=== PATIENT | male | born 2000 | race Caucasian/White ===

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

== ENCOUNTER → 2021-01-12 | Outpatient (CLI) | payer MEDICAID, OTHER ==
--- NOTE | 2021-01-12 16:54 | PN ---
PROGRESS NOTE This patient is a 20-year-old boy with Down's syndrome and obstructive sleep apnea coming in for a followup. Since his evaluation 3 years ago, the patient has gained weight, around 17 pounds. This is partly because of weight gain and growth. He is doing well. He had moderate to severe GOOD with an AHI of 23 and he was treated with a CPAP pressure of 7 cm of water. I re-checked his machine. The machine is functional. Compliance data has been downloaded, and based on 30-day compliance data, the patient has been averaging around 6.2 hours of CPAP use per night at a pressure of 7 with a leak of 1 L/minute, and his AHI is down to 1.2. He is using an AirFit F20 full-face mask, small size. He is doing great. No naps during the day. Alert and refreshed. Interactive and conversing, especially on the days when he wears his CPAP adequately. The family has no complaints in terms of his CPAP use. No snoring while on the CPAP. His current [place] score cannot be adequately obtained because of his underlying mental retardation and Down's syndrome. REVIEW OF SYSTEMS: Fourteen-point review of system was done. No new onset of medical problems or comorbidities. No change in medication. PHYSICAL EXAMINATION: BP is 108/60, pulse 98, respirations 20, temperature 98.8, saturation 95% on room air. Height is 5 feet 2 inches. Weight is 211, BMI 38.5. GENERAL APPEARANCE: Calm, comfortable. HEAD: Atraumatic, normocephalic. Obvious Down's features with microglossia. NECK: Supple. No JVD. No goiter or neck masses. Mallampati class IV. LUNGS: Clear. Breath sounds equal bilaterally. HEART: Heart sounds are regular rate and rhythm. Normal S1, S2. No S3, S4. No murmurs. ABDOMEN: Soft, nontender. No organomegaly. EXTREMITIES: No edema. No cyanosis or clubbing. NEUROLOGIC: Awake and alert. There is no focal neurological deficit. IMPRESSION: 1. Obstructive sleep apnea, moderate to severe. AHI of 23, currently on CPAP pressure of 7. 2. Obesity. The patient has gained weight over the past 3 years and currently is up to 211 pounds. 3. Hypersomnia, improved. PLAN: No issues with his CPAP treatment. The patient will be kept on a pressure of 7. This has been enough and adequate to control his obstructive sleep apnea. No major apneas have been noted on the compliance data. Continue using the AirFit F20 full-face mask. No leaks, and the treatment has been successful. No complaints. Will refill his supplies. Will follow. MMODL / IJN: [id number] /
== END | disposition home or self-care (01) ==

== ENCOUNTER → 2022-01-18 | Outpatient (CLI) | payer MEDICAID, OTHER ==
--- NOTE | 2022-01-18 15:15 | P.PN ---
Subjective Progress Note Date: 01/18/22 21-year-old male patient, a case of Down syndrome, who has obstructive sleep apnea and the patient has been treated with CPAP therapy over the years. The patient has moderate disease with an AHI of 23. The patient has been utilizing CPAP therapy at a pressure of 7 cm of water. He is also utilizing an airfit F20 fullface mask small size. He has gained around 6 pounds since his last evaluation last year and his current body weight is up to 217. He is utilizing his machine as much as possible. He puts the machine on every night. Is able to achieve more than 4 hours of CPAP use only half of the time. As such, the patient's average CPAP usage on dose days are 5.4 hours per night. His AHI is d own to 1.1 indicating successful treatment while having the machine on, and the patient has a leak of 10 L per minute. His current AHI down to 1.1. No other new complaints. The family noted that he is quite active during the day. Doesn't take any significant naps. No new onset medical problems and comorbidities. He has been fully vaccinated for COVID 19 and he has not been infected. No head trauma. No substance abuse. No other major comorbidities since his last evaluation. Objective - Exam BP is 118/99 with a pulse of 100 and a respiration of 20 with a temperature 97.6 and the patient is an oxygen saturation of 96%. A poor scores of 11. Body mass index is 54.3 and the patient's body weight is 217 pounds. Gen. appearance the patient has obvious down feature Head exam was generally normal. There was no scleral icterus or corneal arcus. Mucous membranes were moist. Neck was supple and without jugular venous distension, thyromegaly, or carotid bruits. Carotids were easily palpable bilaterally. There was no adenopathy.The patient is a Mallampati class IV with significant crowding of the posterior oropharynx. No goiter or neck masses Lungs were clear to auscultation and percussion, and with normal diaphragmatic excursion. No wheezes or rales were noted. Cardiac exam revealed the PMI to be normally situated and sized. The rhythm was regular and no extrasystoles were noted during several minutes of auscultation. The first and second heart sounds were normal and physiologic splitting of the second heart sound was noted. There were no murmurs, rubs, clicks, or gallops. Abdominal exam revealed normal bowel sounds. The abdomen was soft, non-tender, and without masses, organomegaly, or appreciable enlargement of the abdominal aorta. Examination of the extremities revealed easily palpable radial, femoral and pedal pulses. There was no cyanosis, clubbing or edema. Examination of the skin revealed no evidence of significant rashes, suspicious appearing nevi or other concerning lesions. Neurologically the patient's cognitive impairment secondary to Down syndrome. Assessment and Plan Plan: 1 obstructive sleep apnea, moderate in severity at bedtime 20. Baseline currently on CPAP at a pressure of 7 cm of water. Compliance is dropped over the past 1 year and the patient has been averaging around 5.4 hours of CPAP use per night. While the machine on, the treatment is successful and his AHI is down to 1.1. 2 chronic hypersomnia improved with CPAP therapy 3 obesity with a body mass index of 54.3 4 chronic hypersomnia, improved with CPAP therapy Plan Encourage using the machine more regularly Keep the same CPAP pressure for now keep the same mask interface Encourage weight loss No need for any CPAP pressure adjustments Refill the supplies See him back in 1-2 years
== END ==
LOC: SLEEP 14:24
PROVIDERS: ATTEND Internal Medicine Critical Care Medicine
DX: G47.33 Obstructive sleep apnea (adult) (pediatric) (principal); Z99.89 Dependence on other enabling machines and devices; E66.9 Obesity, unspecified; Z68.43 Body mass index [BMI] 50.0-59.9, adult